=== PATIENT | male | born 1960 | race Caucasian/White ===

== ENCOUNTER 2023-05-31 10:11 | Inpatient (IN) | payer MEDICARE, MEDICAID, SELFPAY ==
[2023-05-31 10:32] VITALS: BMI 25.1
[2023-05-31 14:55] VITALS: PULSE 79; RESP 18; O2SAT 96
[2023-05-31] MEDS: metoprolol succinate ER (24 HR) 50 mg Tablet PO (17:08)
[2023-05-31] MEDS: gabapentin 300 mg Capsule PO (20:01)
[2023-05-31 22:32] VITALS: RESP 18
[2023-06-01 06:00] VITALS: BP 158/98; PULSE 73; RESP 18; O2SAT 96
[2023-06-01 08:00] VITALS: PULSE 73; RESP 18; O2SAT 98
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
[2023-06-01 09:32] VITALS: BP 158/98
[2023-06-01] MEDS: losartan 50 mg Tablet 100 MG PO (09:32)
[2023-06-01] MEDS: multivitamin therapeutic Tablet 1 TAB PO (09:33)
[2023-06-01] MEDS: thiamine 100 mg Tablet PO (09:33)
[2023-06-01] MEDS: citalopram 20 mg Tablet 10 MG PO (09:33)
[2023-06-01] MEDS: aspirin 81 mg EC Tablet PO (09:33)
[2023-06-01] MEDS: amlodipine 5 mg Tablet PO (09:33)
[2023-06-01] MEDS: metoprolol succinate ER (24 HR) 50 mg Tablet PO ×2 (09:33→17:04)
[2023-06-01 14:00] VITALS: BP 161/96; PULSE 62; RESP 15; TEMP 36.6; O2SAT 97
[2023-06-01] MEDS: gabapentin 300 mg Capsule PO (20:36)
[2023-06-01 20:40] VITALS: BP 152/95; PULSE 62; RESP 16; O2SAT 97
[2023-06-02 06:00] VITALS: BP 132/84; PULSE 65; RESP 18; O2SAT 95
--- NOTE | 2023-06-02 06:34 | W.PM.NPUPNS ---
Subjective NPU Subjective: Patient presents today reporting that he was doing okay. We discussed the risks, benefits and alternatives of increasing his Celexa and he understood and agreed to proceed as is documented in this note. We discussed that Dr. Shipley would be here tomorrow and he would be a person deciding about discharge and reading the treatment team and assisting patient on any referrals that are needed. Mental Status Exam MSE Comments: This is a tall well-nourished well-developed white male looking slightly younger than his stated age with hospital scrubs on with limited grooming and adequate eye contact. No abnormal movements except for mild psychomotor retardation. Cooperative with exam in mild distress. Speech was decreased rate and volume. Mood described as a little down, affect congruent. Thought process organized. Thought content: Patient denied suicidal or homicidal ideation currently but reports those thoughts brought him to the hospital, there were no delusions reported or noted, he denied any auditory or visual hallucinations. Attention and concentration appeared intact and memory appeared reliable but none were formally tested. He is alert and oriented x 3. Insight and judgment appear fair impulse control limited. Vitals/I&O/Wt Last Vital Signs Temp 97.9 F 06/01/23 14:00 Pulse 65 06/02/23 06:00 Resp 18 06/02/23 06:00 BP 132/84 06/02/23 06:00 Pulse Ox 95 06/02/23 06:00 O2 Del Method Room Air 06/01/23 08:00 Weight last 48 hrs Weight 81.647 kg A&P Assessment and plan (1) Major depressive disorder, recurrent: (2) Alcohol use disorder, severe, dependence: (3) Suicidal ideation: (4) Homelessness: Plan This is a 62-year-old white male with a long history of mental health and addiction issues who presents with active alcohol use, depression and significant psychosocial stressors including being homeless essentially who who endorses being open to treatment and medication adjustments. 1. Continue current medication. Increase Celexa to 20 mg p.o. daily. 2. Continue every 15 minute checks for safety. 3. Encourage individual, group and milieu therapy. 4. Encourage sober living treatment after discharge at the highest level of care to which he is willing to commit. Involuntary Hold Information 96 Hour Hold: 96 Hour Involuntary Admission: No Attestations NPU Medical Necessity Statement*: Inpatient hospitalization is medically necessary and the clinically appropriate intervention at this time. We will monitor medications and make changes as indicated. Likely length of stay 2-4 days. Coding Level of Care Code Acute Code for [facility] Fwd Diagnoses Major depressive disorder, recurrent F33.9 Alcohol use disorder, severe, dependence F10.20 Suicidal ideation R45.851 Homelessness Z59.00
[2023-06-02 09:47] VITALS: BP 132/84
[2023-06-02] MEDS: losartan 50 mg Tablet 100 MG PO (09:47)
[2023-06-02] MEDS: thiamine 100 mg Tablet PO (09:47)
[2023-06-02] MEDS: aspirin 81 mg EC Tablet PO (09:47)
[2023-06-02] MEDS: citalopram 20 mg Tablet 10 MG PO (09:47)
[2023-06-02] MEDS: multivitamin therapeutic Tablet 1 TAB PO (09:47)
[2023-06-02] MEDS: metoprolol succinate ER (24 HR) 50 mg Tablet PO ×2 (09:47→17:28)
[2023-06-02] MEDS: amlodipine 5 mg Tablet PO (09:47)
[2023-06-02 14:00] VITALS: BP 132/83; PULSE 66; RESP 16; TEMP 36.6; O2SAT 98
[2023-06-02 19:59] VITALS: BP 124/83; PULSE 61; RESP 18; TEMP 36.9; O2SAT 97
[2023-06-02] MEDS: gabapentin 300 mg Capsule PO (20:27)
[2023-06-03 06:00] VITALS: BP 121/85; PULSE 61; RESP 18; O2SAT 95
[2023-06-03 08:22] VITALS: BP 121/81
[2023-06-03] MEDS: losartan 50 mg Tablet 100 MG PO (08:22)
[2023-06-03] MEDS: aspirin 81 mg EC Tablet PO (08:22)
[2023-06-03] MEDS: multivitamin therapeutic Tablet 1 TAB PO (08:23)
[2023-06-03] MEDS: thiamine 100 mg Tablet PO (08:23)
[2023-06-03] MEDS: metoprolol succinate ER (24 HR) 50 mg Tablet PO ×2 (08:23→17:31)
[2023-06-03] MEDS: citalopram 20 mg Tablet PO (08:23)
[2023-06-03] MEDS: amlodipine 5 mg Tablet PO (08:23)
[2023-06-03 14:00] VITALS: BP 132/80; PULSE 66; RESP 16; O2SAT 100
--- NOTE | 2023-06-03 17:04 | P.NPUPN_ITS ---
Subjective NPU Subjective: 62-year-old woman admitted with suicidal ideation and depression with 1 previous inpatient hospitalization. The patient had reported that he was simply buying his time as he stated that he had had recent medical problems and stated that he had a aneurysm that was inoperable in the back of his neck and the patient had stated that the surgeon had refused to operate on it out of concerns that it would leave him paralyzed her dad and that it would simply need to be managed through medical means including antihypertensives. Patient had reported feeling discouraged by this news over the past few months. He had reported that he had not been optimistic about his future and stated that he was drinking himself to . He reported significant consumption of alcohol recently and reported significant financial stressors. He had reported continued depression. He reported no current side effects from his medication. He had endorsed some feelings of helplessness. Patient had reported some side effects including sleep continuity disruption. Mental Status Exam MSE Comments: This is a tall well-nourished well-developed white male looking slightly younger than his stated age with hospital scrubs on with poor grooming and adequate eye contact. No abnormal movements except for mild psychomotor retardation. He was cooperative with exam in mild distress. His speech was decreased in rate and volume. Mood described as depressed. His affect was mood congruent and restricted. Thought process was linear and organized. Thought content: Patient denied homicidal ideation but admitted to suicidal ideation without a plan. There were no delusions reported or noted, he denied any auditory or visual hallucinations. Attention and concentration appeared intact and memory appeared reliable but none were formally tested. He is alert and oriented x 3. Insight and judgment appear fair. His impulse control was limited. Vitals/I&O/Wt Last Vital Signs Temp 98.4 F 06/02/23 19:59 Pulse 66 06/03/23 14:00 Resp 16 06/03/23 14:00 BP 132/80 06/03/23 14:00 Pulse Ox 100 06/03/23 14:00 O2 Del Method Room Air 06/03/23 14:00 Weight last 48 hrs Weight 84.141 kg Weight 84.935 kg A&P Assessment and plan (1) Major depressive disorder, recurrent: (2) Alcohol use disorder, severe, dependence: (3) Suicidal ideation: (4) Homelessness: Plan This is a 62-year-old white male with a long history of mental health and addiction issues who presents with active alcohol use, depression and significant psychosocial stressors including being homeless essentially who who endorses being open to treatment and medication adjustments. 1. Continue current medication. Continue Celexa at 20 mg p.o. daily. 2. Continue every 15 minute checks for safety. 3. Encourage individual, group and milieu therapy. 4. Encourage sober living treatment after discharge at the highest level of care to which he is willing to commit. Involuntary Hold Information 96 Hour Hold: 96 Hour Involuntary Admission: No Attestations NPU Medical Necessity Statement*: Inpatient hospitalization is medically necessary and the clinically appropriate intervention at this time. We will monitor medications and make changes as indicated. The patient's likely length of stay is 2-4 days. Coding Level of Care Code Acute Code for [facility] Fwd Diagnoses Major depressive disorder, recurrent F33.9 Alcohol use disorder, severe, dependence F10.20 Suicidal ideation R45.851 Homelessness Z59.00
[2023-06-03 20:04] VITALS: BP 150/85; PULSE 57; RESP 17; TEMP 36.8; O2SAT 98
[2023-06-03] MEDS: trazodone 50 mg Tablet PO (20:27)
[2023-06-03] MEDS: gabapentin 300 mg Capsule PO (20:27)
[2023-06-04 06:00] VITALS: BP 127/85; PULSE 75; RESP 16; TEMP 36.6; O2SAT 96
[2023-06-04] MEDS: metoprolol succinate ER (24 HR) 50 mg Tablet PO ×2 (09:06→18:54)
[2023-06-04] MEDS: aspirin 81 mg EC Tablet PO (09:06)
[2023-06-04] MEDS: amlodipine 5 mg Tablet PO (09:07)
[2023-06-04] MEDS: multivitamin therapeutic Tablet 1 TAB PO (09:07)
[2023-06-04] MEDS: thiamine 100 mg Tablet PO (09:07)
[2023-06-04] MEDS: citalopram 20 mg Tablet PO (09:07)
[2023-06-04 09:10] VITALS: BP 123/80
[2023-06-04 14:00] VITALS: BP 120/76; PULSE 58; RESP 16; TEMP 37.1; O2SAT 96
--- NOTE | 2023-06-04 16:42 | W.PM.NPUPNS ---
Subjective NPU Subjective: 62-year-old male admitted with suicidal ideation and depression with 1 previous inpatient hospitalization with a history of alcohol abuse and depression. Patient had endorsed a history of alcohol withdrawal symptoms in the past. He had reported chronic daily drinking. He has stated that he might benefit from inpatient substance abuse treatment. He had reported that he remains without a place to live and is essentially homeless. He had reported that he would like to consider going to [facility]. He did not appear to require any additional benzodiazepine for alcohol withdrawal and CIWA was discontinued. He had reported depressed mood and continue to report passive suicidal thoughts. Patient continued to isolate himself on the milieu. He reported that he had given up on life and had reported a 20-year history of depression. He had reported early use of alcohol prior to the the age of 17. Mental Status Exam MSE Comments: This is a tall well-nourished well-developed white male looking slightly younger than his stated age with hospital scrubs on with poor grooming and adequate eye contact. No abnormal movements except for mild psychomotor retardation. He was cooperative with exam in mild distress. His speech was decreased in rate and volume. Mood described as depressed. His affect was mood congruent and remained restricted. Thought process was linear and organized. Thought content: Patient denied homicidal ideation but admitted to passive suicidal ideation. There were no delusions reported or noted, he denied any auditory or visual hallucinations. Attention and concentration appeared intact and memory appeared reliable but none were formally tested. He is alert and oriented x 3. Insight and judgment appear fair. His impulse control was limited. Vitals/I&O/Wt Last Vital Signs Temp 98.8 F 06/04/23 14:00 Pulse 58 L 06/04/23 14:00 Resp 16 06/04/23 14:00 BP 120/76 06/04/23 14:00 Pulse Ox 96 06/04/23 14:00 O2 Del Method Room Air 06/04/23 14:00 Weight last 48 hrs Weight 84.141 kg A&P Assessment and plan (1) Major depressive disorder, recurrent: (2) Alcohol use disorder, severe, dependence: (3) Suicidal ideation: (4) Homelessness: Plan This is a 62-year-old white male with a long history of mental health and addiction issues who presents with active alcohol use, depression and significant psychosocial stressors including being homeless essentially who who endorses being open to treatment and medication adjustments. 1. Continue current medications. Continue Celexa at 20 mg p.o. daily with consideration for naltrexone to target alcohol abuse. 2. Continue every 15 minute checks for safety. 3. Encourage individual, group and milieu therapy. 4. Encourage sober living treatment after discharge at the highest level of care to which he is willing to commit. Involuntary Hold Information 96 Hour Hold: 96 Hour Involuntary Admission: No Attestations NPU Medical Necessity Statement*: Inpatient hospitalization is medically necessary and the clinically appropriate intervention at this time. We will monitor medications and make changes as indicated. The patient's likely length of stay is 3-5 days. Coding Level of Care Code Acute Code for [facility] Fwd Diagnoses Major depressive disorder, recurrent F33.9 Alcohol use disorder, severe, dependence F10.20 Suicidal ideation R45.851 Homelessness Z59.00
[2023-06-04] MEDS: gabapentin 300 mg Capsule PO (20:25)
[2023-06-04 20:43] VITALS: BP 150/90; PULSE 61; RESP 16; O2SAT 97
[2023-06-05 06:00] VITALS: BP 138/86; PULSE 68; RESP 17; TEMP 36.8; O2SAT 96
[2023-06-05] MEDS: losartan 50 mg Tablet 100 MG PO (08:34)
[2023-06-05] MEDS: aspirin 81 mg EC Tablet PO (08:34)
[2023-06-05] MEDS: multivitamin therapeutic Tablet 1 TAB PO (08:34)
[2023-06-05] MEDS: amlodipine 5 mg Tablet PO (08:34)
[2023-06-05] MEDS: citalopram 20 mg Tablet PO (08:35)
[2023-06-05] MEDS: thiamine 100 mg Tablet PO (08:35)
[2023-06-05] MEDS: metoprolol succinate ER (24 HR) 50 mg Tablet PO ×2 (08:35→17:51)
[2023-06-05 14:00] VITALS: BP 123/75; PULSE 57; RESP 13; TEMP 36.4; O2SAT 95
--- NOTE | 2023-06-05 15:41 | DCPLANNER ---
IMM was printed and pt was explained his rights and copy placed in his file
--- NOTE | 2023-06-05 16:44 | W.PM.NPUPNS ---
Subjective NPU Subjective: 62-year-old male admitted with suicidal ideation and depression with 1 previous inpatient hospitalization with a history of alcohol abuse and depression. Patient was agreeable to residing at [facility] and potentially receiving drug and alcohol treatment on an outpatient basis. He had reported that his mood was better. He reported no side effects from his medication regimen. He had been less isolative on the milieu. He had endorsed concerns about becoming homeless again but stated that he was committed to taking medications. He had reported adequate sleep with his current medication regimen. Mental Status Exam MSE Comments: This is a tall well-nourished well-developed white male looking slightly younger than his stated age with hospital scrubs on with poor grooming and adequate eye contact. No abnormal movements except for mild psychomotor retardation. He was cooperative with exam in no acute distress. His speech was normal in rate, rhythm, and prosody. Mood described as okay. His affect was slightly restricted. Thought process was linear and organized. Thought content: Patient denied homicidal ideation and minimized any suicidal ideation today. There were no delusions reported or noted, he denied any auditory or visual hallucinations. Attention and concentration appeared intact and memory appeared reliable but none were formally tested. He is alert and oriented x 3. Insight and judgment appear fair. His impulse control was limited. Vitals/I&O/Wt Last Vital Signs Temp 97.5 F L 06/05/23 14:00 Pulse 57 L 06/05/23 14:00 Resp 13 06/05/23 14:00 BP 123/75 06/05/23 14:00 Pulse Ox 95 06/05/23 14:00 O2 Del Method Room Air 06/05/23 06:00 A&P Assessment and plan (1) Major depressive disorder, recurrent: (2) Alcohol use disorder, severe, dependence: (3) Suicidal ideation: (4) Homelessness: Plan This is a 62-year-old white male with a long history of mental health and addiction issues who presents with active alcohol use, depression and significant psychosocial stressors including being homeless essentially who who endorses being open to treatment and medication adjustments. 1. Continue current medications. Continue Celexa at 20 mg p.o. daily with consideration for naltrexone to target alcohol abuse. 2. Continue every 15 minute checks for safety. 3. Encourage individual, group and milieu therapy. 4. Encourage sober living treatment after discharge at the highest level of care to which he is willing to commit. Involuntary Hold Information 96 Hour Hold: 96 Hour Involuntary Admission: No Attestations NPU Medical Necessity Statement*: Inpatient hospitalization is medically necessary and the clinically appropriate intervention at this time. We will monitor medications and make changes as indicated. The patient's likely length of stay is 1-2 days with likely discharge tommorow to [facility] [place]. Coding Level of Care Code Acute Code for [facility] Fwd Diagnoses Major depressive disorder, recurrent F33.9 Alcohol use disorder, severe, dependence F10.20 Suicidal ideation R45.851 Homelessness Z59.00
[2023-06-05 17:39] VITALS: PULSE 55; RESP 16; O2SAT 98
[2023-06-05 20:45] VITALS: BP 132/75; PULSE 63; RESP 15; TEMP 36.9; O2SAT 96
[2023-06-05] MEDS: gabapentin 300 mg Capsule PO (21:24)
[2023-06-05] MEDS: trazodone 50 mg Tablet PO (21:24)
[2023-06-06 06:00] VITALS: BP 127/92; PULSE 68; RESP 18; TEMP 36.8; O2SAT 97
[2023-06-06 07:25] VITALS: BP 127/92; PULSE 68; RESP 18; TEMP 36.8; O2SAT 97
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
== END 2023-06-06 10:00 | disposition home or self-care (01) | DRG 885 ==
PROVIDERS: Admitting Provider Psychiatry & Neurology Psychiatry; Visit Provider Psychiatry & Neurology Psychiatry
DX: F33.9 Major depressive disorder, recurrent, unspecified (principal); R45.851 Suicidal ideations; Z59.00 Homelessness unspecified; F10.20 Alcohol dependence, uncomplicated; Z72.0 Tobacco use; Z81.1 Family history of alcohol abuse and dependence; Z79.82 Long term (current) use of aspirin
CPT/HCPCS: 97150; 97165